=== PATIENT | female | born 1985 ===

== ENCOUNTER → 2018-09-06 | Outpatient (CLI) | payer OTHER ==
[2018-09-10 14:06] LABS: HPV 16 Negative (Negative); HPV 18 Negative (Negative); HPV OTHER HR TYPES Negative (Negative)
== END | disposition home or self-care (01) ==
LOC: LAB SHORT 10:25 → LAB 10:25
PROVIDERS: Advanced Practice Midwife
DX: Z01.419 Encounter for gynecological examination (general) (routine) without abnormal findings (principal)
CPT/HCPCS: 87624; G0123

== ENCOUNTER 2019-06-06 13:28 | Inpatient (IN) | payer OTHER ==
[~2019-06-06] VITALS: Ht 152.4 cm; Wt 54.5 kg
[2019-06-06] MEDS ORDERED: PRENATAL TABLE1 EAC2 PO (13:33)
--- NOTE | 2019-06-06 14:28 | NUR ---
DR. NASH SPOKE TO KAM IN LAB. [facility] CLOTTED, THEY ARE GOING TO TRY TO SALVAGE WHAT THEY CAN. THEY WILL CALL BACK IN APPROX 5 MINUTES IF THE LAB NEEDS RE-DRAWN.
[2019-06-06 15:01] LABS: BASOPHILS ABSOLUTE AUTO 0.02 K/mm3 (0.00-0.23); BASOPHILS PERCENT AUTO 0 % (0-2); EOSINOPHILS ABSOLUTE AUTO 0.03 K/mm3 (0.00-0.68); EOSINOPHILS PERCENT AUTO 0 % (0-6); Hematocrit 34.3 % (33.0-51.0); Hemoglobin 10.8 g/dL (11.5-16.0); IMMATURE GRAN ABSOLUTE AUTO 0.04 K/mm3 (0.00-0.10); IMMATURE GRAN PERCENT AUTO 0 % (0-1); LYMPHOCYTES ABSOLUTE AUTO 1.36 K/mm3 (0.84-5.20); LYMPHOCYTES PERCENT AUTO 14 % (21-46); MONOCYTES ABSOLUTE AUTO 0.65 K/mm3 (0.16-1.47); MONOCYTES PERCENT AUTO 7 % (4-13); Mean Corpuscular HGB 26.5 pg (26.0-34.0); Mean Corpuscular HGB Conc 31.5 g/dL (31.5-36.5); Mean Corpuscular Volume 84 fL (80-100); Mean Platelet Volume 12.7 fL (9.1-12.4); NEUTROPHILS PERCENT AUTO 78 % (41-73); Platelet Count 160 K/mm3 (150-400); RDW Coefficient Variation 13.2 % (11.7-14.2); RDW Standard Deviation 40.1 fL (35.1-46.3); Red Blood Cell Count 4.08 M/mm3 (3.80-5.20)
[2019-06-06 16:09] LABS: PCO2 Cord - Arterial 69.4 mmHg (40-50); pH Cord - Arterial 7.18 (7.28-7.35)
--- NOTE | 2019-06-06 16:09 | NUR ---
06/06/19 1609 Ruby Ramirez 1555 DELIVERY VIABLE MALE WEIGHT 9# 13 OZ, APGARS 9/9 UMBILCAL CORD SEGMENT COLLECTED AND SENT WITH RT FOR CORD GASES, UMBILICAL CORD BLOOD COLLECTED FOR TYPE AND RH GIVE TO Nixon CAMACHO RN
[2019-06-06 16:11] LABS: PO2 Cord - Venous 16.6 mmHg (28-32); pH Umbilical Cord - Venous 7.25 (7.26-7.35)
--- NOTE | 2019-06-06 19:11 | NUR ---
REPORT TO RIGO BOOTH
--- NOTE | 2019-06-06 19:30 | NUR ---
JUSTEN CARE AND PAD CHANGE DONE BY RN AND FBP TECH. PAD WAS 3/4 SATURATED WITH A GOLF BALL SIZE CLOT PRESENT, CLOT WAS NOT HARD. UTERUS WAS FIRM UPON FUNDAL MASSAGE WITH A SMALL STEADY AMOUNT OF BLEEDING, BLEEDING SUBSIDED DURING FUNDAL MASSAGE. PATIENT DRESSING 1/2 SATURATED. RN OUTLINED DRESSING TO MONITOR BLEEDING. DISCUSSED WITH STREET LIGHT WIRER RACHEL. REASSESSED PATIENT BLEEDING ONE HOUR AFTER PAD CHANGE. NEW PAD WAS 3/4 SATURATED, DURING FUNDAL MASSAGED NO CLOTS PRESENT, BLEEDING SCANT. BLEEDING ON DRESSING MOVED JUST PAST OUTLINED PAUL. AFTER DISCUSSING WITH STREET LIGHT WIRER IM METHERGINE WAS GIVEN PER E MAR, DRESSING REINFORCED WITH ABD PAD. VSS, PATIENT DENIES ANY DIZZINESS OR HEADACHE. RN WILL REASSESS IN ONE HOUR AND CONTINUE TO MONITOR.
[2019-06-07 03:44] LABS: Hematocrit 27.1 % (33.0-51.0); Hemoglobin 8.6 g/dL (11.5-16.0); Mean Corpuscular HGB 27.1 pg (26.0-34.0); Mean Corpuscular HGB Conc 31.7 g/dL (31.5-36.5); Mean Corpuscular Volume 86 fL (80-100); Platelet Count 162 K/mm3 (150-400); RDW Standard Deviation 40.3 fL (35.1-46.3); Red Blood Cell Count 3.17 M/mm3 (3.80-5.20); White Blood Cell Count 15.52 K/mm3 (4.00-11.30)
[2019-06-07 03:45] LABS: Mean Platelet Volume 13.5 fL (9.1-12.4)
--- NOTE | 2019-06-07 10:38 | NUR ---
K-PAD GIVEN TO PT
--- NOTE | 2019-06-07 18:00 | NUR ---
PT CALLED RN INTO ROOM WITH C/O OF INCREASED PAIN AND "HAVING A HARD TIME BREATHING". VSS. PULSE OX 97%. BREATH SOUNDS CLEAR BILATERAL. PT DESCRIBES PAIN UP IN RIGHT SHOULDER AND RUQ. STOMACH IS DISTENDED, PT STATES SHE WAS ABLE TO PASS "A TINY AMOUNT OF GAS EARLIER, BUT NOT MUCH" BOWEL TONES ACTIVE IN ALL QUADS. BINDER RELEASED PER PT STATING IT IS MORE COMFORTABLE. PT LAID BACK, PT STATES THE PRESSURE IS A LITTLE BETTER WHEN LAID BACK. DR. GOMES IS UNIT, RN WILL NOTIFY DR. GOMES PT C/O WHEN SHE IS AVAILABLE TO TALK TO.
--- NOTE | 2019-06-07 18:30 | NUR ---
SBAR GIVEN TO DR. GOMES WITH PT COMPLAINTS. DR. GOMSE GOING TO PUT IN AN ODER TO [facility] AND SHE WILL ASSESS AND TALK WITH PT AND .
--- NOTE | 2019-06-08 | NUR ---
PATIENT CALLED TO RN ROOM. AFTER LYING IN BED FOR 3 OR MORE HOURS WITHOUT GETTING UP PATIENT GOT UP TO BATHROOM AND HAD A SMALL SIZED SOFT JELLY LIKE CLOT. PATIENT ASYMPTOMATIC, VITAL SIGNS STABLE. RN PERFORMED FUNDAL MASSAGE, FUNDUS WAS FIRM AND MIDLINE. BLEEDING WAS SCANT. RN EDUCATED PATIENT THAT BLOOD CAN POOL IN THE VAGINA WHEN LYING OR SITTING FOR LONG PERIODS OF TIME. EDUCATED PATIENT ON THE IMPORTANCE OF GETTING UP TO TRY AND PEE AT LEAST EVERY TWO HOURS. RN DISCUSSED WITH PRODUCTION WOOD CRAFTSMAN SHERRY. WILL CONTINUE TO MONITOR.
--- NOTE | 2019-06-08 08:10 | NUR ---
QUARTER SIZED DARK RED BLOOD CLOT IN TOILET. FUNDUS FIRM. BLEEDING OTHERWISE SCANT.
--- NOTE | 2019-06-08 09:30 | NUR ---
PT AND SO TALKED WITH DR. GOMES THIS AM. THEY ARE UNDECIDED IF THEY'D LIEK TO GO HOME TODAY OR TOMORROW. THEY VERBALIZE THEY ARE A LITTLE NERVOUS ABOUT PT BLEEDING AND GAS PAINS. CURRENT PLAN OF CARE IS TO MONITOR HOW THINGS GO T/O TODAY AND THEY CAN DECIDE IF THEY'D LIKE TO STAY ANOTHER NIGHT FOR CONTINUED MONITORING. DR. GOMES WRITTEN SOME RX'S FOR PT. RN WILL GIVE TO TODAY SO IF THEY WOULD LIKE, HE CAN TAKE THEM TO BE FILLED TODAY IN CASE OF DISCHARGE TONIGHT. PT AND SO ENCOURAGED TO STAY ANOTHER NIGHT IF THEY ARE UNCOMFORTABLE WITH DISCHARGE TODAY.
[2019-06-09] MEDS ORDERED: Percocet 5-3251 EACH PO (10:46)
[2019-06-09] MEDS ORDERED: IBUP800 PO (10:46)
--- NOTE | 2019-06-09 10:58 | NUR ---
RN ROUNDED TO HELP W/ . EXPERIENCED MOM. PT HAS NB LATCHED ANF FEEDING WELL. INSTRUCT/REVIEWED BOOKLET AND BROCHURE ON WHAT TO EXPECT DURING THE FIRST WEEK W/ AND CHANGES IN NB. PT DENIES ANY FURTHER QUESTIONS OR CONCERNS.
--- NOTE | 2019-06-09 13:52 | NUR ---
BANDS MATHCED WITH . PT DISCHARGED TO HOME
== END 2019-06-09 14:35 | disposition home or self-care (01) | DRG 788 ==
LOC: BC 13:28
PROVIDERS: Obstetrics & Gynecology; ADMIT Obstetrics & Gynecology
PROC: 10907ZC Drainage of Amniotic Fluid, Therapeutic from Products of Conception, Via Natural or Artificial Opening (ICD-10-PCS; 2019-06-06)
PROC: 10D00Z1 Extraction of Products of Conception, Low, Open Approach (ICD-10-PCS; principal; 2019-06-06 14:30)
DX: O34.211 Maternal care for low transverse scar from previous cesarean delivery (principal); O99.824 Streptococcus B carrier state complicating childbirth; Z37.0 Single live birth; Z3A.40 40 weeks gestation of pregnancy
CPT/HCPCS: 36415; 82803; 85025; 85027; 86850; 86900; 86901; 90707; C1765; J0690; J1100; J1885; J2210; J2370; J2405; J2590; J2765; J3010; J7120